=== PATIENT | male | born 1960 | race Caucasian/White ===

== ENCOUNTER 2019-04-15 16:10 | Emergency (ER) | payer SELFPAY ==
[2019-04-15 16:52] LABS: % BASOPHILS 0.3 % (0.0-2.0); % EOSINOPHILS 1.2 % (0.0-5.0); % MONOCYTES 9.6 % (2.0-10.0); % NEUTROPHILS 49.9 % (40.0-80.0); EOSINOPHILE ABSOLUTE 0.1 Th/cmm (0.1-0.4); HEMATOCRIT 44.3 % (41.0-60); HEMOGLOBIN 14.8 gm/dL (12-16); LYMPHOCYTE ABSOLUTE 3.4 Th/cmm (1.5-3.0); MEAN CELL VOLUME 91.5 fl (80-99); MEAN CORPUSCULAR HEMOGLOBIN 30.7 pg (26.0-30.0); MEAN CORPUSCULAR HGB CONC 33.5 pg (28.0-36.0); MONOCYTE ABSOLUTE 0.8 Th/cmm (0.3-1.0); NEUTROPHILE ABSOLUTE 4.3 Th/cmm (1.8-8.0); PLATELET COUNT 314 Th/cmm (150-400); RED BLOOD COUNT 4.84 Mil/cmm (4.30-5.70); RED CELL DISTRIBUTION WIDTH 12.2 % (11.5-20.0); WHITE BLOOD COUNT 8.6 Th/cmm (4.8-10.8)
[2019-04-15 17:03] LABS: INR 1.01 (0.5-1.4)
[2019-04-15 17:08] LABS: ALB/GLOB RATIO 1.4 (1.0-1.8); ALBUMIN 4.4 gm/dL (4.2-5.5); ALKALINE PHOSPHATASE 61 U/L (34-104); ANION GAP 12.8 (7.0-16.0); BILIRUBIN,TOTAL 0.9 mg/dL (0.3-1.0); BUN - UREA NITROGEN 18 mg/dL (7-25); CALCIUM SERUM 9.6 mg/dL (8.6-10.3); CARBON DIOXIDE 27.7 mEq/L (21.0-31.0); CHLORIDE 101 mEq/L (98-107); CHOLESTEROL 182 mg/dL (<200); CREATININE - SERUM 1.1 mg/dL (0.7-1.3); CREATININE KINASE 118 U/L (30-223); GFR AFRICAN-AMERICAN > 60.0 ml/min (>90); GFR NON AFRICAN-AMERICAN > 60.0 ml/min; GLUCOSE 107 mg/dL (70-105); HDL -HIGH DENSITY LIPOPROTEIN 34 mg/dL (23-92); POTASSIUM SERUM 3.5 mEq/L (3.5-5.1); SGOT 32 U/L (13-39); SGPT/ALT 45 U/L (7-52); SODIUM SERUM 138 mEq/L (136-145); TOTAL PROTEIN,SERUM 7.5 gm/dL (6.0-8.3); TRIGLYCERIDES 101 mg/dL (<150)
[2019-04-15] MEDS ORDERED: Sodium Chloride 0.9% 1,000 ML IV ONE (18:06)
[2019-04-15 18:22] LABS: AMYLASE SERUM 31 U/L (29-103); LIPASE 19 U/L (11-82)
--- NOTE | 2019-04-15 18:52 | ED Physician Chart ---
ED Chief Complaint/HPI - Patient Information Date Seen:: 04/15/19 Time Seen:: 16:30 Chief Complaint:: Dizziness History of Present Illness:: onset x 3 days of dizziness, vertigo, numbness, weakness, and paresthesias with neck pain; pt denies trauma, H/As, S/T, cough, C/P, SOB, Abd. Pain, A/N/V/D/C, fever, chills, or urinary s/s Allergies:: Allergies Allergy/AdvReac Type Severity Reaction Status Date / Time No Known Allergies Allergy Verified 04/15/19 16:32 Vitals:: Vital Signs - 8 hr 04/15/19 04/15/19 16:32 17:45 Temp 99 F 98.8 F HR 79 68 RR 16 18 BP 136/74 105/60 O2 Sat % 97 97 Historian:: Patient Review:: Nurse's Note Reviewed <Horacio Chang - Last Filed: 04/15/19 18:46> - Patient Information Allergies:: Allergies Allergy/AdvReac Type Severity Reaction Status Date / Time No Known Allergies Allergy Verified 04/15/19 16:32 Vitals:: Vital Signs - 8 hr 04/15/19 04/15/19 04/15/19 16:32 17:45 19:42 Temp 99 F 98.8 F HR 79 68 79 RR 16 18 16 BP 136/74 105/60 122/79 O2 Sat % 97 97 98 <Yu Black - Last Filed: 04/15/19 20:25> ED Review of Systems - Review of Systems General/Constitutional: No fever, No chills, No weight loss, No weakness, No diaphoresis, No edema, No loss of appetite Skin: No skin lesions, No rash, No bruising Head: No headache, No light-headedness Eyes: No loss of vision, No pain, No diplopia ENT: No earache, No nasal drainage, No sore throat, No tinnitus Neck: No neck pain, No swelling, No thyromegaly, No stiffness, No mass noted Cardio Vascular: No chest pain, No palpitations, No PND, No orthopnea, No edema Pulmonary: No SOB, No cough, No sputum, No wheezing GI: No nausea, No vomiting, No diarrhea, No pain, No melena, No hematochezia, No constipation, No hematemesis G/U: No dysuria, No frequency, No hematuria, No nacturia Musculoskeletal: No bone or joint pain, No back pain, No muscle pain Endocrine: No polyuria, No polydipsia Psychiatric: No prior psych history, No depression, No anxiety, No suicidal ideation, No homicidal ideation, No auditory hallucination, No visual hallucination Hematopoietic: No bruising, No lymphadenopathy Allergic/Immuno: No urticaria, No angioedema Neurological: No syncope, No focal symptoms, No weakness, No paresthesia, No headache, No seizure, No dizziness, No confusion, No vertigo <Horacio Chang - Last Filed: 04/15/19 18:46> ED Past Medical History - Past Medical History Obtainable: Yes Past Medical History: HTN Family History: HTN Social History: Non Smoker, No Alcohol, No Drug Use, , Employed Surgical History: None Psychiatricy History: None Medication: Reviewed <Horacio Chang Filed: 04/15/19 18:46> Family Medical History - Family Member Father Living Status: Other Medical History: lung Ca <Horacio Chang - Last Filed: 04/15/19 18:46> ED Physical Exam - Physical Examination General/Constitutional: Awake, Well-developed, well-nourished, Alert, No distress, GCS 15, Non-toxic appearing, Ambulatory Head: Atraumatic Eyes: Lids, conjuctiva normal, PERRL, EOMI Skin: Nl inspection, No rash, No skin lesions, No ecchymosis, Well hydrated, No lymphadenopathy ENMT: External ears, nose nl, TM canals nl, Nasal exam nl, Lips, teeth, gums nl , Oropharynx nl, Tonsils nl Neck: Nontender, Full ROM w/o pain, No JVD, No nuchal rigidity, No bruit, No mass, No stridor Other Neck comments:: supple; no meningeal signs; no cervical tenderness Respiratory: Nl effort/Exclusion, Clear to Auscultation, No Wheeze/Rhonchi/Rales Cardio Vascular: RRR, No murmur, gallop, rubs, NL S1 S2, Carotid/Femoral/Distal pulses equal bilaterally GI: No tenderness/rebounding/guarding, No organomegaly, No hernia, Normal BS's, Nondistended, No mass/bruits, No McBurney tenderness, Rectum exam nl Other GI comments:: no pulsatile masses : No CVA tenderness Extremities: No tenderness or effusion, Full ROM, normal strength in all extremities, No edema, Normal digits & nails Neuro/Psych: Alert/oriented, DTR's symmetric, Normal sensory exam, Normal motor strength, Judgement/insight normal, Mood normal, Normal gait, No focal deficits Misc: Normal back, No paraspinal tenderness <Horacio Chang - Last Filed: 04/15/19 18:46> ED Labs/Radiology/EKG Results - Lab Results Results: Laboratory Tests 04/15/19 04/15/19 04/15/19 16:46 16:46 16:46 WBC 8.6 RBC 4.84 Hgb 14.8 Hct 44.3 MCV 91.5 MCH 30.7 H MCHC Differential 33.5 RDW 12.2 Plt Count 314 MPV 7.5 Neutrophils % 49.9 Lymphocytes % 39.0 Monocytes % 9.6 Eosinophils % 1.2 Basophils % 0.3 PT 10.5 INR 1.01 Sodium 138 Potassium 3.5 Chloride 101 Carbon Dioxide 27.7 Anion Gap 12.8 BUN 18 Creatinine 1.1 Est GFR ( Amer) > 60.0 Est GFR (Non-Af Amer) > 60.0 BUN/Creatinine Ratio 16.4 Glucose 107 H Calcium 9.6 Total Bilirubin 0.9 AST 32 ALT 45 Alkaline Phosphatase 61 Creatine Kinase 118 Total Protein 7.5 Albumin 4.4 Globulin 3.1 Albumin/Globulin Ratio 1.4 Triglycerides 101 Cholesterol 182 LDL Cholesterol Direct 134 HDL Cholesterol 34 Amylase Lipase 04/15/19 16:46 WBC RBC Hgb Hct MCV MCH MCHC Differential RDW Plt Count MPV Neutrophils % Lymphocytes % Monocytes % Eosinophils % Basophils % PT INR Sodium Potassium Chloride Carbon Dioxide Anion Gap BUN Creatinine Est GFR ( Amer) Est GFR (Non-Af Amer) BUN/Creatinine Ratio Glucose Calcium Total Bilirubin AST ALT Alkaline Phosphatase Creatine Kinase Total Protein Albumin Globulin Albumin/Globulin Ratio Triglycerides Cholesterol LDL Cholesterol Direct HDL Cholesterol Amylase 31 Lipase 19 Comments:: Reviewed - Radiology Results Comments:: DJD; NAD - EKG Interpretations Comments:: deferred by pt <Horacio Chang - Last Filed: 04/15/19 18:46> - Lab Results Results: Laboratory Tests 04/15/19 04/15/19 04/15/19 16:46 16:46 16:46 WBC 8.6 RBC 4.84 Hgb 14.8 Hct 44.3 MCV 91.5 MCH 30.7 H MCHC Differential 33.5 RDW 12.2 Plt Count 314 MPV 7.5 Neutrophils % 49.9 Lymphocytes % 39.0 Monocytes % 9.6 Eosinophils % 1.2 Basophils % 0.3 PT 10.5 INR 1.01 Sodium 138 Potassium 3.5 Chloride 101 Carbon Dioxide 27.7 Anion Gap 12.8 BUN 18 Creatinine 1.1 Est GFR ( Amer) > 60.0 Est GFR (Non-Af Amer) > 60.0 BUN/Creatinine Ratio 16.4 Glucose 107 H Calcium 9.6 Total Bilirubin 0.9 AST 32 ALT 45 Alkaline Phosphatase 61 Creatine Kinase 118 Troponin I B-Natriuretic Peptide Total Protein 7.5 Albumin 4.4 Globulin 3.1 Albumin/Globulin Ratio 1.4 Triglycerides 101 Cholesterol 182 LDL Cholesterol Direct 134 HDL Cholesterol 34 Amylase Lipase 04/15/19 04/15/19 04/15/19 16:46 16:46 16:46 WBC RBC Hgb Hct MCV MCH MCHC Differential RDW Plt Count MPV Neutrophils % Lymphocytes % Monocytes % Eosinophils % Basophils % PT INR Sodium Potassium Chloride Carbon Dioxide Anion Gap BUN Creatinine Est GFR ( Amer) Est GFR (Non-Af Amer) BUN/Creatinine Ratio Glucose Calcium Total Bilirubin AST ALT Alkaline Phosphatase Creatine Kinase Troponin I 0.02 B-Natriuretic Peptide 83.7 Total Protein Albumin Globulin Albumin/Globulin Ratio Triglycerides Cholesterol LDL Cholesterol Direct HDL Cholesterol Amylase 31 Lipase 19 <Yu Black - Last Filed: 04/15/19 20:25> ED Septic Shock - . Is Septic Shock (SBP<90, OR Lactate>4 mmol\L) present?: No - <6hrs of presentation: Vital Signs: Vital Signs - 8 hr 04/15/19 04/15/19 16:32 17:45 Temp 99 F 98.8 F HR 79 68 RR 16 18 BP 136/74 105/60 O2 Sat % 97 97 <Horacio Chang - Last Filed: 04/15/19 18:46> - <6hrs of presentation: Vital Signs: Vital Signs - 8 hr 04/15/19 04/15/19 04/15/19 16:32 17:45 19:42 Temp 99 F 98.8 F HR 79 68 79 RR 16 18 16 BP 136/74 105/60 122/79 O2 Sat % 97 97 98 <Yu Black - Last Filed: 04/15/19 20:25> ED Reassessment (Disposition) - Reassessment Reassessment Condition:: Improved - Diagnosis Diagnosis:: Paresthesias; Weakness; Dizziness; Vertigo; TIA; DJD <Horacio Chang - Last Filed: 04/15/19 18:46> - Reassessment Reassessment:: CT head was negative. CT C-spine showed degenerative changes. Advised patient to follow up with his worker's compensation physician Dr. Galvez who had ordered MRI cervical spine, MRI left shoulder, nerve conduction test and wrote a thorough report. Patient agreed. - Patient Disposition Discharge/Transfer:: Home <Yu Black - Last Filed: 04/15/19 20:25>
--- NOTE | 2019-04-16 08:39 | Diagnostic Imaging Report ---
Head CT without intravenous contrast Indication: Weakness, pain, paresthesia Comparison: None Technique: Axial images were obtained from the vertex to the skull base without IV contrast. Coronal reconstructions were made. Total DLP: 766, CTDI42 FINDINGS: Images of the brain obtained without contrast demonstrate no evidence of an acute hemorrhage. The beach-white matter differentiation is preserved. The ventricles and basal cisterns are patent. No mass effect or midline shift. Atherosclerosis is noted. No evidence of a skull fracture or focal soft tissue swelling. There is mild mucosal thickening of the paranasal sinuses. IMPRESSION: No evidence of acute intracranial hemorrhage. Atherosclerotic vascular disease. If indicated MRI follow-up may be obtained.
--- NOTE | 2019-04-16 08:43 | Diagnostic Imaging Report ---
CT cervical spine without IV contrast HISTORY: Weakness, pain, paresthesia COMPARISON: None Technique: Axial images were obtained from the skull base to the upper thoracic spine without IV contrast. Multiplanar reconstructions were made. Total DLP: 528, CTDI24 FINDINGS: Images of the cervical spine obtained without contrast demonstrate no evidence of an acute fracture or subluxation. Moderate degenerative changes are seen including mild disc space loss of height at C3/C4 and C4/C5 and moderate disc space loss of height at C5/C6. There is a 2 to 3 mm posterior disc osteophyte complex at C3/C4 causing mild spinal canal narrowing. There is mild bilateral neural foraminal narrowing at this level. There is also 3 to 4 mm posterior disc osteophyte complex asymmetric to the right at C5/C6 causing moderate spinal canal and moderate to severe right neural foraminal narrowing. No prevertebral soft tissue swelling. Mild atherosclerosis is noted. IMPRESSION: No evidence of an acute fracture or subluxation Degenerative changes greatest at C3/C4 and C5/C6 as detailed above. Mild atherosclerosis.
== END 2019-04-15 19:50 | disposition home or self-care (01) ==
LOC: ER 16:10
DX: G45.9 Transient cerebral ischemic attack, unspecified (principal); M19.90 Unspecified osteoarthritis, unspecified site; R42 Dizziness and giddiness; R20.2 Paresthesia of skin; R53.1 Weakness; I10 Essential (primary) hypertension
CPT/HCPCS: 36415-UA; 70450-TC; 72125-TC; 80053-TC; 80061-TC; 82150-TC; 82550-TC; 83690-TC; 83880-TC; 84484-TC; 85025-TC; 85610-TC; 94760; J7030